=== PATIENT | male | born 1990 | race African-American/Black ===

== ENCOUNTER 2016-10-19 14:27 | Inpatient (IN) | payer MEDICAID ==
[~2016-10-19] VITALS: Ht 175.3 cm; Wt 74.4 kg
[~2016-10-19 14:27] MED LIST: ESCI10TA PO; PRAZ1 PO; QUET200T PO
[2016-10-19] MEDS ORDERED: FLUO-191 PO (14:40)
[2016-10-19 15:13] LABS: ANION GAP 6 mmol/L (8-16); CALCIUM, TOTAL 8.9 mg/dL (8.8-10.5); CARBON DIOXIDE 27 mmol/L (22-29); CHLORIDE 102 mmol/L (98-107); CREATININE 0.99 mg/dL (0.60-1.30); GLOMERULAR FILTR. RATE CALC > 60 mL/min (>60); POTASSIUM 3.5 mmol/L (3.5-5.1); SODIUM SERUM 135 mmol/L (136-145); UREA NITROGEN, BLOOD 13 mg/dL (7-18)
[2016-10-19 15:15] LABS: BASOPHILS % (AUTO) 0.5 % (0.0-2.0); HEMATOCRIT 44.7 % (41-53); HEMOGLOBIN 14.4 g/dL (13.5-17.5); LYMPHOCYTES % (AUTO) 28.5 % (22.0-44.0); MEAN CORPUSCULAR HEMOGLOBIN 27.6 pg (26.0-34.0); MEAN CORPUSCULAR HGB CONC 32.2 G/dL (31.0-37.0); MEAN CORPUSCULAR VOLUME 86 fL (80-100); MONOCYTES # (AUTO) 0.6 K/uL (0.1-1.0); MONOCYTES % (AUTO) 8.3 % (2.0-9.0); NEUTROPHILS # (AUTO) 4.2 K/uL (1.8-7.7); NEUTROPHILS % (AUTO) 61.7 % (40.0-70.0); PLATELET COUNT (AUTO) 240 K/uL (150-450); RED CELL DISTRIBUTION WIDTH 13.8 % (11.5-14.5); WHITE BLOOD COUNT (AUTO) 6.8 K/uL (4.5-11.0)
[2016-10-19 15:18] LABS: ALANINE AMINOTRANSFERASE 16 U/L (12-78); ASPARTATE AMINOTRANSFERASE 11 U/L (15-37); BILIRUBIN,TOTAL 0.8 mg/dL (0.1-1.0); TOTAL PROTEIN, SERUM 7.3 g/dL (6.4-8.2)
[2016-10-19 15:45] LABS: ACETAMINOPHEN < 2 mcg/mL (10-30)
[2016-10-19 15:46] LABS: SALICYLATE < 2.8 mg/dL (2.8-20.0)
[2016-10-19] MEDS ORDERED: HALOPERIDOL 5 MG TABLET PO PRN (17:00)
[2016-10-19] MEDS ORDERED: ZOLPIDEM TARTRATE 10 MG TABLET PO PRN (17:00)
[2016-10-19] MEDS ORDERED: LORazepam 2 MG TABLET PO PRN (17:00)
[2016-10-20 00:44] VITALS: BP 125/77
[2016-10-20] MEDS ORDERED: INFLUENZA VIRUS VACCINE QVS 2016-17 (3YR+)/PF 60 MCG/0.5 ML SYRINGE IM ONE (00:45)
[2016-10-20 08:45] VITALS: BP 113/61
[2016-10-20] MEDS: FLUoxetine HCL 20 MG CAPSULE PO SCH (09:16)
[2016-10-20] MEDS ORDERED: ACETAMINOPHEN 325 MG TABLET PO PRN (09:30)
[2016-10-20] MEDS ORDERED: MAGNESIUM HYDROXIDE SUSPENSION 30 ML UDCUP PO PRN (09:30)
[2016-10-20] MEDS ORDERED: IBUPROFEN 600 MG TABLET PO PRN (09:30)
[2016-10-20] MEDS ORDERED: ALBUTEROL SULFATE HFA 90 MCG/PUFF 8 GM INHALER IH PRN (09:30)
[2016-10-20] MEDS ORDERED: PETROLATUM,WHITE 71 GM JELLY TP PRN (09:30)
[2016-10-20] MEDS ORDERED: CloNIDine HCL 0.1 MG TABLET PO PRN (09:30)
[2016-10-20] MEDS ORDERED: BACITRACIN 28.4 GM OINTMENT TP PRN (09:30)
[2016-10-20] MEDS ORDERED: BENZOCAINE/MENTHOL LOZENGE MM PRN (09:30)
[2016-10-20] MEDS ORDERED: ONDANSETRON HCL 4 MG TABLET PO PRN (09:30)
[2016-10-20] MEDS ORDERED: MAG HYDROX/AL HYDROX/SIMETH ES 30 ML SUSPENSION UDCUP PO PRN (09:30)
[2016-10-20 16:16] VITALS: BP 118/77
[2016-10-20] MEDS: QUEtiapine FUMARATE 100 MG TABLET PO SCH (20:38)
[2016-10-21 00:20] VITALS: BP 110/60
[2016-10-21 08:48] VITALS: BP 109/61
[2016-10-21] MEDS: FLUoxetine HCL 20 MG CAPSULE PO SCH (08:49)
[2016-10-21 16:00] VITALS: BP 119/63
[2016-10-21] MEDS: QUEtiapine FUMARATE 100 MG TABLET PO SCH (20:44)
[2016-10-22 06:27] VITALS: BP 100/60
[2016-10-22 08:44] VITALS: BP 116/74
[2016-10-22] MEDS: FLUoxetine HCL 20 MG CAPSULE PO SCH (08:46)
[2016-10-22 17:53] VITALS: BP 117/75
[2016-10-22] MEDS: QUEtiapine FUMARATE 100 MG TABLET PO SCH (20:18)
[2016-10-23 02:23] VITALS: BP 103/62
[2016-10-23 08:06] VITALS: BP 114/67
[2016-10-23] MEDS: FLUoxetine HCL 20 MG CAPSULE PO SCH (09:15)
== END 2016-10-23 16:12 | disposition home or self-care (01) | DRG 751 ==
LOC: EMS 14:28 → B2S 17:14
PROVIDERS: ADMIT Psychiatry & Neurology Psychiatry; ATTEND Psychiatry & Neurology Psychiatry
DX: F33.2 Major depressive disorder, recurrent severe without psychotic features (principal); R45.851 Suicidal ideations; F15.20 Other stimulant dependence, uncomplicated; F25.9 Schizoaffective disorder, unspecified; F31.9 Bipolar disorder, unspecified; F41.9 Anxiety disorder, unspecified; F43.10 Post-traumatic stress disorder, unspecified; F17.210 Nicotine dependence, cigarettes, uncomplicated; R45.84 Anhedonia; Z81.8 Family history of other mental and behavioral disorders; F60.3 Borderline personality disorder; F12.90 Cannabis use, unspecified, uncomplicated; Z71.6 Tobacco abuse counseling; Z72.89 Other problems related to lifestyle; Z71.41 Alcohol abuse counseling and surveillance of alcoholic; Z91.5 Personal history of self-harm; Z88.8 Allergy status to other drugs, medicaments and biological substances; Z79.899 Other long term (current) drug therapy
CPT/HCPCS: 93005; 99285; G0480; G0481

== ENCOUNTER 2017-07-28 20:45 | Inpatient (IN) | payer MEDICAID ==
[~2017-07-28] VITALS: Ht 172.7 cm; Wt 60.4 kg
[~2017-07-28 20:45] MED LIST changes: -ESCI10TA PO; +FLUO-191 PO; -PRAZ1 PO
[2017-07-28 22:25] LABS: BASOPHILS # (AUTO) 0.05 K/uL (0.00-0.20); BASOPHILS % (AUTO) 0.6 % (0.0-2.0); EOSINOPHILS # (AUTO) 0.03 K/uL (0.00-0.70); EOSINOPHILS % (AUTO) 0.36 % (1.0-6.0); HEMATOCRIT 46.1 % (41-53); LYMPHOCYTES # (AUTO) 2.9 K/uL (1.0-4.8); LYMPHOCYTES % (AUTO) 36.9 % (22.0-44.0); MEAN CORPUSCULAR HEMOGLOBIN 28.3 pg (26.0-34.0); MEAN CORPUSCULAR HGB CONC 32.5 G/dL (31.0-37.0); MEAN CORPUSCULAR VOLUME 87 fL (80-100); MONOCYTES # (AUTO) 0.6 K/uL (0.1-1.0); NEUTROPHILS # (AUTO) 4.2 K/uL (1.8-7.7); NEUTROPHILS % (AUTO) 54.1 % (40.0-70.0); PLATELET COUNT (AUTO) 262 K/uL (150-450); RED CELL DISTRIBUTION WIDTH 13.6 % (11.5-14.5)
[2017-07-28 22:34] LABS: ANION GAP 21 mmol/L (8-16); CALCIUM, TOTAL 9.7 mg/dL (8.8-10.5); CARBON DIOXIDE 19 mmol/L (22-29); CHLORIDE 94 mmol/L (98-107); CREATININE 1.26 mg/dL (0.60-1.30); GLOMERULAR FILTR. RATE CALC > 60 mL/min (>60); GLUCOSE,RANDOM 85 mg/dL (70-110); POTASSIUM 3.4 mmol/L (3.5-5.1); SODIUM SERUM 134 mmol/L (136-145); UREA NITROGEN, BLOOD 19 mg/dL (7-18)
[2017-07-28 22:36] LABS: AMPHET/METH SCREEN,URINE POSITIVE (NEGATIVE); BARBITURATE SCREEN, URINE NEGATIVE (NEGATIVE); BENZODIAZEPINES SCREEN,URINE NEGATIVE (NEGATIVE); CANNABINOID SCREEN,URINE NEGATIVE (NEGATIVE); COCAINE SCREEN,URINE NEGATIVE (NEGATIVE); METHADONE SCREEN, URINE NEGATIVE (NEGATIVE); OPIATE SCREEN,URINE NEGATIVE (NEGATIVE); PHENCYCLIDINE SCREEN,URINE NEGATIVE (NEGATIVE)
[2017-07-28 22:41] LABS: ALANINE AMINOTRANSFERASE 22 U/L (12-78); ALKALINE PHOSPHATASE 64 U/L (46-116); ASPARTATE AMINOTRANSFERASE 15 U/L (15-37); BILIRUBIN,TOTAL 1.4 mg/dL (0.1-1.0); TOTAL PROTEIN, SERUM 8.8 g/dL (6.4-8.2)
[2017-07-29] MEDS ORDERED: ZOLPIDEM TARTRATE 10 MG TABLET PO PRN (00:45)
[2017-07-29] MEDS ORDERED: POTASSIUM CHLORIDE 20 MEQ ER TABLET PO ONE (05:30)
[2017-07-29 10:06] VITALS: BP 119/79
[2017-07-29 16:08] VITALS: BP 114/68
[2017-07-29] MEDS: LORazepam 2 MG TABLET PO PRN (17:00)
[2017-07-29] MEDS: HALOPERIDOL 5 MG TABLET PO PRN (17:00)
[2017-07-30 06:22] VITALS: BP 113/66
[2017-07-30 08:07] VITALS: BP 118/64
[2017-07-30 08:22] LABS: ANION GAP 7 mmol/L (8-16); CALCIUM, TOTAL 9.3 mg/dL (8.8-10.5); CARBON DIOXIDE 33 mmol/L (22-29); CHLORIDE 96 mmol/L (98-107); CHOLESTEROL 186 mg/dL (131-200); GLOMERULAR FILTR. RATE CALC > 60 mL/min (>60); GLUCOSE,RANDOM 97 mg/dL (70-110); HDL CHOLESTEROL 46 mg/dL (40-60); LDL CHOL (CALC.) 129 mg/dL (0-130); SODIUM SERUM 136 mmol/L (136-145); TRIGLYCERIDES 57 mg/dL (15-150); UREA NITROGEN, BLOOD 13 mg/dL (7-18)
[2017-07-30] MEDS ORDERED: POTASSIUM CHLORIDE 20 MEQ ER TABLET PO ONE (16:15)
[2017-07-30] MEDS: HALOPERIDOL 5 MG TABLET PO PRN (16:18)
[2017-07-30] MEDS: LORazepam 2 MG TABLET PO PRN (16:18)
[2017-07-30 16:39] VITALS: BP 105/67
[2017-07-30] MEDS: BENZTROPINE MESYLATE 1 MG TABLET PO SCH (20:24)
[2017-07-30] MEDS: OLANZapine 10 MG TABLET PO SCH (20:25)
[2017-07-30] MEDS: OXcarbazepine 300 MG TABLET PO SCH (20:25)
[2017-07-30] MEDS: FLUoxetine HCL 20 MG CAPSULE PO SCH (20:25)
[2017-07-31 06:59] VITALS: BP 109/69
[2017-07-31 08:14] VITALS: BP 114/76
[2017-07-31] MEDS: LORazepam 2 MG TABLET PO PRN ×2 (08:41→17:25)
[2017-07-31] MEDS: HALOPERIDOL 5 MG TABLET PO PRN (08:41)
[2017-07-31 16:00] VITALS: BP 108/69
[2017-07-31] MEDS: BENZTROPINE MESYLATE 1 MG TABLET PO SCH (20:14)
[2017-07-31] MEDS: OLANZapine 10 MG TABLET PO SCH (20:15)
[2017-07-31] MEDS: OXcarbazepine 300 MG TABLET PO SCH (20:15)
[2017-07-31] MEDS: FLUoxetine HCL 20 MG CAPSULE PO SCH (20:15)
[2017-08-01 06:31] VITALS: BP 107/65
[2017-08-01 09:36] VITALS: BP 97/64
[2017-08-01 16:00] VITALS: BP 113/70
[2017-08-01] MEDS: OXcarbazepine 300 MG TABLET PO SCH (20:44)
[2017-08-01] MEDS: OLANZapine 10 MG TABLET PO SCH (20:44)
[2017-08-01] MEDS: FLUoxetine HCL 20 MG CAPSULE PO SCH (20:44)
[2017-08-01] MEDS: BENZTROPINE MESYLATE 1 MG TABLET PO SCH (20:44)
[2017-08-01] MEDS: LORazepam 2 MG TABLET PO PRN (20:45)
[2017-08-02 05:28] VITALS: BP 107/72
[2017-08-02] MEDS: HALOPERIDOL 5 MG TABLET PO PRN (08:19)
[2017-08-02] MEDS: LORazepam 2 MG TABLET PO PRN (08:19)
[2017-08-02] MEDS ORDERED: BENZ1TAB10 PO (09:49)
[2017-08-02] MEDS ORDERED: OXCA300T PO (09:49)
[2017-08-02] MEDS ORDERED: OLAN10TA3 PO (09:49)
== END 2017-08-02 13:30 | disposition home or self-care (01) | DRG 750 ==
LOC: EMS 20:48 → B3A 07-29 09:03
DX: F25.1 Schizoaffective disorder, depressive type (principal); R45.851 Suicidal ideations; F43.10 Post-traumatic stress disorder, unspecified; E87.6 Hypokalemia; F15.10 Other stimulant abuse, uncomplicated; F17.210 Nicotine dependence, cigarettes, uncomplicated; Z91.5 Personal history of self-harm; Z91.048 Other nonmedicinal substance allergy status
CPT/HCPCS: 87081; 99285; G0480

== ENCOUNTER 2017-08-25 20:28 | Inpatient (IN) | payer MEDICAID ==
[~2017-08-25] VITALS: Ht 174 cm; Wt 60.6 kg
[~2017-08-25 20:28] MED LIST changes: +BENZ1TAB10 PO; +OLAN10TA3 PO; +OXCA300T PO; -QUET200T PO
[2017-08-25 21:04] LABS: BASOPHILS % (AUTO) 0.5 % (0.0-2.0); EOSINOPHILS % (AUTO) 0.3 % (1.0-6.0); HEMATOCRIT 46.4 % (41-53); HEMOGLOBIN 15.6 g/dL (13.5-17.5); LYMPHOCYTES # (AUTO) 2.3 K/uL (1.0-4.8); LYMPHOCYTES % (AUTO) 26.5 % (22.0-44.0); MEAN CORPUSCULAR HEMOGLOBIN 28.3 pg (26.0-34.0); MEAN CORPUSCULAR HGB CONC 33.6 G/dL (31.0-37.0); MEAN CORPUSCULAR VOLUME 84 fL (80-100); MONOCYTES # (AUTO) 0.8 K/uL (0.1-1.0); MONOCYTES % (AUTO) 9.7 % (2.0-9.0); NEUTROPHILS # (AUTO) 5.4 K/uL (1.8-7.7); PLATELET COUNT (AUTO) 283 K/uL (150-450); RED BLOOD CELL COUNT(AUTO) 5.51 MIL/uL (4.50-5.90); RED CELL DISTRIBUTION WIDTH 13.9 % (11.5-14.5)
[2017-08-25 21:10] LABS: ANION GAP 17 mmol/L (8-16); CALCIUM, TOTAL 9.7 mg/dL (8.8-10.5); CARBON DIOXIDE 21 mmol/L (22-29); CHLORIDE 98 mmol/L (98-107); CREATININE 1.36 mg/dL (0.60-1.30); GLOMERULAR FILTR. RATE CALC > 60 mL/min (>60); GLUCOSE,RANDOM 92 mg/dL (70-110); POTASSIUM 3.8 mmol/L (3.5-5.1); SODIUM SERUM 136 mmol/L (136-145); UREA NITROGEN, BLOOD 26 mg/dL (7-18)
[2017-08-25 21:18] LABS: ALANINE AMINOTRANSFERASE 18 U/L (12-78); ALKALINE PHOSPHATASE 63 U/L (46-116); ASPARTATE AMINOTRANSFERASE 19 U/L (15-37); BILIRUBIN,TOTAL 1.4 mg/dL (0.1-1.0); TOTAL PROTEIN, SERUM 8.8 g/dL (6.4-8.2)
[2017-08-25] MEDS ORDERED: ZOLPIDEM TARTRATE 10 MG TABLET PO PRN (21:30)
[2017-08-25] MEDS ORDERED: LORazepam 2 MG TABLET PO PRN (21:30)
[2017-08-25 21:52] LABS: AMPHET/METH SCREEN,URINE POSITIVE (NEGATIVE); BARBITURATE SCREEN, URINE NEGATIVE (NEGATIVE); BENZODIAZEPINES SCREEN,URINE NEGATIVE (NEGATIVE); CANNABINOID SCREEN,URINE NEGATIVE (NEGATIVE); METHADONE SCREEN, URINE NEGATIVE (NEGATIVE); OPIATE SCREEN,URINE NEGATIVE (NEGATIVE)
[2017-08-25 21:53] LABS: PHENCYCLIDINE SCREEN,URINE NEGATIVE (NEGATIVE)
[2017-08-25 21:59] LABS: COCAINE SCREEN,URINE NEGATIVE (NEGATIVE)
[2017-08-25] MEDS: HALOPERIDOL 5 MG TABLET PO PRN (22:09)
[2017-08-26 06:43] LABS: CHOL/HDL RATIO 3.6 (4.2-7.3)
[2017-08-26 10:45] VITALS: BP 112/67
[2017-08-26] MEDS ORDERED: INFLUENZA VIRUS VACCINE QVS 2017-18 (3YR+)/PF 60 MCG/0.5 ML SYRINGE IM ONE (14:00)
[2017-08-26] MEDS: HALOPERIDOL 5 MG TABLET PO PRN (20:02)
[2017-08-26 20:11] VITALS: BP 112/65
[2017-08-27 08:30] VITALS: BP 109/56
[2017-08-27 18:10] VITALS: BP 103/59
[2017-08-27] MEDS: OXcarbazepine 300 MG TABLET PO SCH (21:39)
[2017-08-27] MEDS: OLANZapine 10 MG TABLET PO SCH (21:39)
[2017-08-27] MEDS: FLUoxetine HCL 20 MG CAPSULE PO SCH (21:40)
[2017-08-27] MEDS: BENZTROPINE MESYLATE 1 MG TABLET PO SCH (21:40)
[2017-08-28 16:22] VITALS: BP 102/58
[2017-08-28] MEDS: OLANZapine 10 MG TABLET PO SCH (20:16)
[2017-08-28] MEDS: OXcarbazepine 300 MG TABLET PO SCH (20:18)
[2017-08-28] MEDS: BENZTROPINE MESYLATE 1 MG TABLET PO SCH (20:18)
[2017-08-28] MEDS: FLUoxetine HCL 20 MG CAPSULE PO SCH (20:18)
[2017-08-29 03:10] VITALS: BP 133/92
[2017-08-29 08:51] VITALS: BP 152/95
[2017-08-29 17:19] VITALS: BP 119/75
[2017-08-29] MEDS: FLUoxetine HCL 20 MG CAPSULE PO SCH (20:06)
[2017-08-29] MEDS: OXcarbazepine 300 MG TABLET PO SCH (20:06)
[2017-08-29] MEDS: OLANZapine 10 MG TABLET PO SCH (20:06)
[2017-08-29] MEDS: BENZTROPINE MESYLATE 1 MG TABLET PO SCH (20:06)
== END 2017-08-30 18:00 | disposition home or self-care (01) | DRG 750 ==
LOC: EMS 20:30 → AHU 08-26 10:02 → 3EI 08-27 03:30
PROC: 3E0234Z Introduction of Serum, Toxoid and Vaccine into Muscle, Percutaneous Approach (ICD-10-PCS; principal; 2017-08-26)
DX: F25.1 Schizoaffective disorder, depressive type (principal); F15.20 Other stimulant dependence, uncomplicated; R45.851 Suicidal ideations; E78.5 Hyperlipidemia, unspecified; F12.90 Cannabis use, unspecified, uncomplicated; F43.10 Post-traumatic stress disorder, unspecified; F41.9 Anxiety disorder, unspecified; F17.210 Nicotine dependence, cigarettes, uncomplicated; Z79.899 Other long term (current) drug therapy; Z91.048 Other nonmedicinal substance allergy status; Z23 Encounter for immunization
CPT/HCPCS: 87081; 99285; G0480

== ENCOUNTER 2017-09-15 21:12 | Emergency (ER) | payer MEDICAID ==
[~2017-09-15] VITALS: Ht 172.7 cm; Wt 72.7 kg
[2017-09-15 21:46] LABS: BASOPHILS % (AUTO) 1.1 % (0.0-2.0); EOSINOPHILS % (AUTO) 0.2 % (1.0-6.0); HEMATOCRIT 42.1 % (41-53); LYMPHOCYTES # (AUTO) 2.4 K/uL (1.0-4.8); LYMPHOCYTES % (AUTO) 23.7 % (22.0-44.0); MEAN CORPUSCULAR HEMOGLOBIN 28.2 pg (26.0-34.0); MEAN CORPUSCULAR HGB CONC 33.3 G/dL (31.0-37.0); MEAN CORPUSCULAR VOLUME 85 fL (80-100); MONOCYTES # (AUTO) 0.8 K/uL (0.1-1.0); MONOCYTES % (AUTO) 8.5 % (2.0-9.0); NEUTROPHILS # (AUTO) 6.6 K/uL (1.8-7.7); NEUTROPHILS % (AUTO) 66.5 % (40.0-70.0); PLATELET COUNT (AUTO) 297 K/uL (150-450); RED BLOOD CELL COUNT(AUTO) 4.96 MIL/uL (4.50-5.90); RED CELL DISTRIBUTION WIDTH 14.1 % (11.5-14.5)
[2017-09-15 22:06] LABS: ANION GAP 15 mmol/L (8-16); CALCIUM, TOTAL 9.8 mg/dL (8.8-10.5); CARBON DIOXIDE 22 mmol/L (22-29); CHLORIDE 100 mmol/L (98-107); GLOMERULAR FILTR. RATE CALC > 60 mL/min (>60); GLUCOSE,RANDOM 120 mg/dL (70-110); POTASSIUM 3.8 mmol/L (3.5-5.1); SODIUM SERUM 137 mmol/L (136-145); UREA NITROGEN, BLOOD 8 mg/dL (7-18)
[2017-09-15 22:12] LABS: ALANINE AMINOTRANSFERASE 110 U/L (12-78); ALBUMIN 4.4 g/dL (3.4-5.0); ALKALINE PHOSPHATASE 62 U/L (46-116); ASPARTATE AMINOTRANSFERASE 40 U/L (15-37); BILIRUBIN,TOTAL 0.7 mg/dL (0.1-1.0); TOTAL PROTEIN, SERUM 8.1 g/dL (6.4-8.2)
[2017-09-15 22:14] LABS: AMPHET/METH SCREEN,URINE POSITIVE (NEGATIVE); BARBITURATE SCREEN, URINE NEGATIVE (NEGATIVE); BENZODIAZEPINES SCREEN,URINE NEGATIVE (NEGATIVE); CANNABINOID SCREEN,URINE NEGATIVE (NEGATIVE); COCAINE SCREEN,URINE NEGATIVE (NEGATIVE); METHADONE SCREEN, URINE NEGATIVE (NEGATIVE); OPIATE SCREEN,URINE NEGATIVE (NEGATIVE)
[2017-09-15 22:17] LABS: PHENCYCLIDINE SCREEN,URINE NEGATIVE (NEGATIVE)
[2017-09-15] MEDS ORDERED: QUEtiapine FUMARATE 200 MG TABLET PO ONE (23:15)
[2017-09-16 00:15] VITALS: BP 146/87
== END 2017-09-16 00:17 | disposition home or self-care (01) ==
LOC: EMS 21:16
DX: F43.10 Post-traumatic stress disorder, unspecified (principal); F20.9 Schizophrenia, unspecified; F15.10 Other stimulant abuse, uncomplicated; F32.9 Major depressive disorder, single episode, unspecified; F17.210 Nicotine dependence, cigarettes, uncomplicated
CPT/HCPCS: 36415; 80053; 80307; 85025; 99284; 99406; G0480

== ENCOUNTER 2017-09-27 11:05 | Inpatient (IN) | payer MEDICAID ==
[~2017-09-27] VITALS: Ht 175.3 cm; Wt 68.9 kg
[2017-09-27] MEDS ORDERED: HALOPERIDOL 5 MG TABLET PO ONE (12:15)
[2017-09-27] MEDS ORDERED: LORazepam 2 MG TABLET PO ONE (12:15)
[2017-09-27 12:22] LABS: BASOPHILS % (AUTO) 0.9 % (0.0-2.0); EOSINOPHILS % (AUTO) 4.3 % (1.0-6.0); HEMATOCRIT 41.7 % (41-53); HEMOGLOBIN 14.1 g/dL (13.5-17.5); LYMPHOCYTES # (AUTO) 2.8 K/uL (1.0-4.8); MEAN CORPUSCULAR HEMOGLOBIN 28.5 pg (26.0-34.0); MEAN CORPUSCULAR HGB CONC 33.8 G/dL (31.0-37.0); MEAN CORPUSCULAR VOLUME 84 fL (80-100); MONOCYTES # (AUTO) 0.8 K/uL (0.1-1.0); MONOCYTES % (AUTO) 12.8 % (2.0-9.0); NEUTROPHILS # (AUTO) 2.6 K/uL (1.8-7.7); PLATELET COUNT (AUTO) 208 K/uL (150-450); RED BLOOD CELL COUNT(AUTO) 4.94 MIL/uL (4.50-5.90); RED CELL DISTRIBUTION WIDTH 13.8 % (11.5-14.5)
[2017-09-27] MEDS ORDERED: DiphenhydrAMINE HCL 50 MG/ML VIAL ONE (12:26)
[2017-09-27] MEDS ORDERED: LORazepam 2 MG/ML VIAL ONE (12:26)
[2017-09-27] MEDS ORDERED: HALOPERIDOL LACTATE 5 MG/ML VIAL ONE (12:26)
[2017-09-27] MEDS ORDERED: HALOPERIDOL LACTATE 5 MG/ML VIAL IM ONE (12:30)
[2017-09-27] MEDS ORDERED: DiphenhydrAMINE HCL 50 MG/ML VIAL IM ONE (12:30)
[2017-09-27] MEDS ORDERED: LORazepam 2 MG/ML VIAL IM ONE (12:30)
[2017-09-27 12:49] LABS: ANION GAP 12 mmol/L (8-16); CALCIUM, TOTAL 9.5 mg/dL (8.8-10.5); CARBON DIOXIDE 29 mmol/L (22-29); CHLORIDE 98 mmol/L (98-107); CREATININE 1.02 mg/dL (0.60-1.30); GLOMERULAR FILTR. RATE CALC > 60 mL/min (>60); GLUCOSE,RANDOM 102 mg/dL (70-110); POTASSIUM 3.4 mmol/L (3.5-5.1); SODIUM SERUM 139 mmol/L (136-145); UREA NITROGEN, BLOOD 19 mg/dL (7-18)
[2017-09-27 12:55] LABS: ALANINE AMINOTRANSFERASE 24 U/L (12-78); ALBUMIN 4.6 g/dL (3.4-5.0); ALKALINE PHOSPHATASE 63 U/L (46-116); ASPARTATE AMINOTRANSFERASE 18 U/L (15-37); BILIRUBIN,TOTAL 1.2 mg/dL (0.1-1.0); TOTAL PROTEIN, SERUM 7.6 g/dL (6.4-8.2)
[2017-09-27] MEDS ORDERED: ZOLPIDEM TARTRATE 10 MG TABLET PO PRN (13:00)
[2017-09-27] MEDS ORDERED: HALOPERIDOL 5 MG TABLET PO PRN (13:00)
[2017-09-27 17:53] VITALS: BP 103/63
[2017-09-27] MEDS ORDERED: INFLUENZA VIRUS VACCINE QVS 2017-18 (3YR+)/PF 60 MCG/0.5 ML SYRINGE IM ONE (18:15)
[2017-09-27] MEDS ORDERED: POTASSIUM CHLORIDE 20 MEQ ER TABLET PO ONE (19:00)
[2017-09-27] MEDS: OXcarbazepine 300 MG TABLET PO SCH (20:04)
[2017-09-28 06:46] VITALS: BP 135/84
[2017-09-28 08:08] VITALS: BP 108/68
[2017-09-28] MEDS: BENZTROPINE MESYLATE 1 MG TABLET PO SCH ×2 (11:00→16:24)
[2017-09-28 16:00] VITALS: BP 114/68
[2017-09-28] MEDS: OXcarbazepine 300 MG TABLET PO SCH (20:20)
[2017-09-28] MEDS: OLANZapine 10 MG TABLET PO SCH (20:20)
[2017-09-28] MEDS: FLUoxetine HCL 20 MG CAPSULE PO SCH (20:20)
[2017-09-29 02:00] VITALS: BP 106/65
[2017-09-29 08:15] VITALS: BP 108/69
[2017-09-29] MEDS: BENZTROPINE MESYLATE 1 MG TABLET PO SCH ×2 (08:25→16:43)
[2017-09-29 08:35] LABS: ANION GAP 4 mmol/L (8-16); CALCIUM, TOTAL 8.8 mg/dL (8.8-10.5); CARBON DIOXIDE 35 mmol/L (22-29); CHLORIDE 100 mmol/L (98-107); CHOLESTEROL 139 mg/dL (131-200); GLOMERULAR FILTR. RATE CALC > 60 mL/min (>60); GLUCOSE,RANDOM 83 mg/dL (70-110); HDL CHOLESTEROL 46 mg/dL (40-60); LDL CHOL (CALC.) 87 mg/dL (0-130); POTASSIUM 3.9 mmol/L (3.5-5.1); SODIUM SERUM 139 mmol/L (136-145); TRIGLYCERIDES 29 mg/dL (15-150); UREA NITROGEN, BLOOD 12 mg/dL (7-18)
[2017-09-29 16:06] VITALS: BP 113/66
[2017-09-29] MEDS: LORazepam 2 MG TABLET PO PRN (16:43)
[2017-09-29] MEDS: OXcarbazepine 300 MG TABLET PO SCH (20:24)
[2017-09-29] MEDS: OLANZapine 10 MG TABLET PO SCH (20:24)
[2017-09-29] MEDS: FLUoxetine HCL 20 MG CAPSULE PO SCH (20:24)
[2017-09-30 06:55] VITALS: BP 105/68
[2017-09-30 08:00] VITALS: BP 112/64
[2017-09-30] MEDS: BENZTROPINE MESYLATE 1 MG TABLET PO SCH ×2 (08:29→17:09)
[2017-09-30 16:00] VITALS: BP 121/75
[2017-09-30] MEDS: LORazepam 2 MG TABLET PO PRN (17:09)
[2017-09-30] MEDS: OXcarbazepine 300 MG TABLET PO SCH (20:35)
[2017-09-30] MEDS: OLANZapine 10 MG TABLET PO SCH (20:36)
[2017-09-30] MEDS: FLUoxetine HCL 20 MG CAPSULE PO SCH (20:36)
[2017-10-01 05:18] VITALS: BP 119/81
[2017-10-01 08:06] VITALS: BP 117/73
[2017-10-01] MEDS: BENZTROPINE MESYLATE 1 MG TABLET PO SCH (09:09)
== END 2017-10-01 13:15 | disposition home or self-care (01) | DRG 750 ==
LOC: EMS 11:06 → B3A 16:02 → B2S 10-01 10:12
DX: F25.1 Schizoaffective disorder, depressive type (principal); N17.9 Acute kidney failure, unspecified; E73.9 Lactose intolerance, unspecified; E78.5 Hyperlipidemia, unspecified; E87.6 Hypokalemia; F17.210 Nicotine dependence, cigarettes, uncomplicated; F12.90 Cannabis use, unspecified, uncomplicated; F31.9 Bipolar disorder, unspecified; F43.10 Post-traumatic stress disorder, unspecified; F15.10 Other stimulant abuse, uncomplicated; F41.9 Anxiety disorder, unspecified; Z79.899 Other long term (current) drug therapy; Z78.1 Physical restraint status; Z28.21 Immunization not carried out because of patient refusal
CPT/HCPCS: 96372; 99291; G0480; J1200; J1630; J2060